=== PATIENT | female | born 1990 | race Two or more races ===

== ENCOUNTER 2019-01-23 16:26 | Emergency (ER) | payer BC ==
[~2019-01-23] VITALS: Ht 162.6 cm; Wt 65.0 kg
[2019-01-23] MEDS ORDERED: IBUPROFEN 600MG TABLET PO ONE (18:45)
[2019-01-23] MEDS ORDERED: ACETAMINOPHEN 325MG TABLET PO ONE (20:00)
[2019-01-23] MEDS ORDERED: METHOCARBAMOL 500MG TABLET PO ONE (20:00)
[2019-01-23 20:45] VITALS: BP 115/68
== END 2019-01-23 21:24 | disposition home or self-care (01) ==
LOC: ER 16:26
DX: S29.012A Strain of muscle and tendon of back wall of thorax, initial encounter (principal); V49.49XA Driver injured in collision with other motor vehicles in traffic accident, initial encounter; Y93.89 Activity, other specified; Y92.89 Other specified places as the place of occurrence of the external cause; Y99.8 Other external cause status
CPT/HCPCS: 72070; 81025; 99283